=== PATIENT | male | born 1990 | race Caucasian/White ===

== ENCOUNTER 2022-08-14 04:39 | Emergency (ER) | payer OTHER ==
[~2022-08-14] VITALS: Ht 172.7 cm; Wt 60.4 kg
[2022-08-14 08:31] VITALS: BP 121/80
[2022-08-14] MEDS ORDERED: NAPR-837 PO (09:07)
== END 2022-08-14 09:23 | disposition home or self-care (01) ==
LOC: M ED 04:39
DX: M65.241 Calcific tendinitis, right hand (principal); F17.200 Nicotine dependence, unspecified, uncomplicated; Z88.0 Allergy status to penicillin; Z79.1 Long term (current) use of non-steroidal anti-inflammatories (NSAID)

== ENCOUNTER 2022-09-25 06:37 | Emergency (ER) | payer OTHER ==
[~2022-09-25] VITALS: Ht 172.7 cm; Wt 59.1 kg
[2022-09-25 06:37] VITALS: BP 128/85; TEMP 97.5; O2SAT 98
[~2022-09-25 06:37] MED LIST: NAPR-837 PO
== END 2022-09-25 06:55 | disposition left against medical advice (07) ==
LOC: M ED 06:37
DX: Z53.21 Procedure and treatment not carried out due to patient leaving prior to being seen by health care provider (principal)

== ENCOUNTER 2024-02-06 12:42 | Emergency (ER) | payer OTHER ==
[~2024-02-06] VITALS: Ht 172.7 cm; Wt 62.2 kg
[2024-02-06] MEDS: PROPARACAINE 0.5% OPHTH SOL 15ML OU ONE (14:59)
[2024-02-06] MEDS: METOCLOPRAMIDE INJ 10MG/2ML VIAL IV ONE (15:00)
[2024-02-06] MEDS: ACETAMINOPHEN *IV* 1,000 MG in IV 1 EA IV ONE (15:00)
[2024-02-06 15:02] LABS: BASO # 0.1 10^3/uL (0.0-0.2); BASO % 0.6 % (0.0-1.0); EOS # 0.2 10^3/uL (0.0-0.5); EOS % 1.8 % (0.0-3.0); HEMOGLOBIN 14.2 g/dl (13.5-17.5); LYMPH # 1.5 10^3/uL (1.5-5.0); LYMPH % 14.5 % (24.0-44.0); MEAN CORPUSCULAR HEMOGLOBIN 32.8 pg (27.0-33.0); MEAN CORPUSCULAR HGB CONC 34.6 g/dl (32.0-36.5); MEAN CORPUSCULAR VOLUME 94.7 fl (80.0-96.0); MONO # 0.7 10^3/uL (0.0-0.8); NEUTROPHILS % 75.7 % (36.0-66.0); PLATELET COUNT, AUTOMATED 241 10^3/uL (150-450); RED BLOOD COUNT 4.33 10^6/uL (4.30-6.10); WHITE BLOOD COUNT 10.6 10^3/uL (4.0-10.0)
[2024-02-06 15:32] LABS: BLOOD UREA NITROGEN 17 MG/DL (9-23); CALCIUM LEVEL 9.1 MG/DL (8.5-10.1); CARBON DIOXIDE LEVEL 25 MMOL/L (20-31); CHLORIDE LEVEL 110 MMOL/L (98-107); CREATININE FOR GFR 1.14 MG/DL (0.70-1.30); GLOMERULAR FILTRATION RATE > 60.0 (>60); GLUCOSE, FASTING 115 MG/DL (60-100); SODIUM LEVEL 140 MMOL/L (136-145)
[2024-02-06 19:28] VITALS: BP 111/71; TEMP 98.3; O2SAT 99
== END 2024-02-06 19:32 | disposition home or self-care (01) ==
LOC: M ED 12:42
DX: H53.8 Other visual disturbances (principal); F17.200 Nicotine dependence, unspecified, uncomplicated; Z88.0 Allergy status to penicillin
CPT/HCPCS: 70450; 70551; 80048; 85025; 96374; 99284; J0131; J2765